=== PATIENT | female | born 1995 | race African-American/Black ===

== ENCOUNTER 2018-07-28 14:15 | Emergency (ER) | payer SELFPAY ==
--- NOTE | 2018-07-28 15:31 | ER ---
Nurse's Notes [facility] Name: Wayne Burns Age: 23 yrs Sex: Female : 1995 Arrival Date: 07/28/2018 Time: 14:19 Bed 10 Private MD: None, None Diagnosis: Gum swelling Presentation: 07/28 14:30 Presenting complaint: Patient states: Left lower tooth pain for 2 weeks. Dental carries aj noted to far left lower molar. Transition of care: patient was not received from another setting of care. Onset of symptoms was July 16, 2018. Risk Assessment: Do you want to hurt yourself or someone else? Patient reports no desire to harm self or others. Initial Sepsis Screen: Does the patient meet any 2 criteria? No. Patient's initial sepsis screen is negative. Does the patient have a suspected source of infection? No. Patient's initial sepsis screen is negative. Care prior to arrival: None. 14:30 Method Of Arrival: Ambulatory aj 14:30 Acuity: ISAIAH 5 aj Triage Assessment: 14:31 General: Appears in no apparent distress. comfortable, Behavior is calm, cooperative, aj appropriate for age. Pain: Complains of pain in lower left third molar. EENT: Reports pain in lower left third molar. Neuro: Level of Consciousness is awake, alert, obeys commands, Oriented to person, place, time, situation, Appropriate for age. Respiratory: Airway is patent Respiratory effort is even, unlabored, Respiratory pattern is regular, symmetrical. Derm: Skin is intact, is healthy with good turgor, Skin is pink, warm \\T\\ dry. normal. 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 - Social history:: Smoking status: Patient uses tobacco products, denies chronic smoking, but will smoke occasionally. - Ebola Screening: : Patient negative for fever greater than or equal to 101.5 degrees Fahrenheit, and additional compatible Ebola Virus Disease symptoms Patient denies exposure to infectious person Patient denies travel to an Ebola-affected area in the 21 days before illness onset No symptoms or risks identified at this time. Screenin:12 Abuse screen: Denies threats or abuse. Nutritional screening: No deficits noted. aa5 Tuberculosis screening: No symptoms or risk factors identified. Fall Risk None identified. Assessment: 15:09 General: Appears comfortable, Behavior is calm, cooperative. Pain: Complains of pain in aa5 lower left wisdom tooth Pain currently is 8 out of 10 on a pain scale. Neuro: Level of Consciousness is awake, alert, obeys commands, Oriented to person, place, time, situation. Cardiovascular: No deficits noted. Respiratory: Airway is patent Respiratory effort is even, unlabored, Respiratory pattern is regular, symmetrical. GI: No signs and/or symptoms were reported involving the gastrointestinal system. : No signs and/or symptoms were reported regarding the genitourinary system. EENT: Pt states "My left wisdom tooth is coming in so it's very painful, sometimes when I wake up in the mornings my left jaw is swollen". No swelling noted to jaw at this time. . Derm: Skin is pink, warm \\T\\ dry. Musculoskeletal: Range of motion: intact in all extremities. Vital Signs: 14:31 BP 112 / 91; Pulse 105; Resp 20; Temp 98.1; Pulse Ox 98% on R/A; Weight 68.04 kg; aj Height 5 ft. 6 in. (167.64 cm); 14:31 Body Mass Index 24.21 (68.04 kg, 167.64 cm) aj ED Course: 14:19 Patient arrived in ED. mr 14:20 None, None is Private Physician. mr 14:31 Triage completed. aj 14:31 Arm band placed on left wrist. Patient placed in waiting room, Patient notified of wait aj time Patient Patient asked if she could leave the hospital property and go to get food. Patient informed that she could not leave the property if she was registered. Given directions to vending machines. Suggested patient's adult visitor could go get food instead. 15:04 Jenifer Pfeiffer, NICANOR is Primary Nurse. aa5 15:05 Raisa Morales FNP-C is PHCP. kb 15:05 Gaudencio Plaza MD is Attending Physician. kb 15:09 Patient has correct armband on for positive identification. Bed in low position. Call aa5 light in reach. Side rails up X 1. 15:13 No provider procedures requiring assistance completed. aa5 15:37 Patient did not have IV access during this emergency room visit. aa5 Administered Medications: No medications were administered Outcome: 15:30 Discharge ordered by . johnnie 15:37 Discharged to home ambulatory. aa5 15:37 Condition: good 15:37 Discharge instructions given to patient, Instructed on discharge instructions, follow up and referral plans. medication usage, Demonstrated understanding of instructions, follow-up care, medications, Prescriptions given X 1. 15:38 Patient left the ED. aa5 Signatures: Raisa Morales, KNOT CUTTER-C KNOT CUTTER-Merced Bianchi, RN RN Ariela Peralta Audri, RN RN aa5 Corrections: (The following items were deleted from the chart) 15:13 15:10 Patient has correct armband on for positive identification. Bed in low position. aa5 Call light in reach. Side rails up X 1. aa5
--- NOTE | 2018-07-28 15:31 | EDPHYS ---
Physician Documentation [facility] Name: Wayne Burns Age: 23 yrs Sex: Female : 1995 Arrival Date: 07/28/2018 Time: 14:19 Bed 10 Private MD: None, None ED Physician Gaudencio Plaza HPI: 07/28 15:26 This 23 yrs old Black Female presents to ER via Ambulatory with complaints of Mouth kb Problem. 15:26 The patient presents with pain, swelling. The problem is located in the lower left kb third molar (#17). Onset: The symptoms/episode began/occurred 3 week(s) ago. Duration: The symptoms are intermittent. Modifying factors: The symptoms are alleviated by nothing, the symptoms are aggravated by nothing. Associated signs and symptoms: Pertinent positives: pain, swelling, Pertinent negatives: anorexia, chills, dysphagia, fever, inability to eat, nausea, redness in area, vomiting. Severity of symptoms: At their worst the symptoms were mild, moderate, in the emergency department the symptoms are unchanged. The patient has not experienced similar symptoms in the past. The patient has not recently seen a physician. 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 - Social history:: Smoking status: Patient uses tobacco products, denies chronic smoking, but will smoke occasionally. - Ebola Screening: : Patient negative for fever greater than or equal to 101.5 degrees Fahrenheit, and additional compatible Ebola Virus Disease symptoms Patient denies exposure to infectious person Patient denies travel to an Ebola-affected area in the 21 days before illness onset No symptoms or risks identified at this time. ROS: 15:25 Constitutional: Negative for fever, chills, and weight loss, Cardiovascular: Negative kb for chest pain, palpitations, and edema, Respiratory: Negative for shortness of breath, cough, wheezing, and pleuritic chest pain, Abdomen/GI: Negative for abdominal pain, nausea, vomiting, diarrhea, and constipation, MS/Extremity: Negative for injury and deformity, Skin: Negative for injury, rash, and discoloration, Neuro: Negative for headache, weakness, numbness, tingling, and seizure. 15:25 ENT: Positive for dental pain. Exam: 15:25 Constitutional: This is a well developed, well nourished patient who is awake, alert, kb and in no acute distress. Head/Face: Normocephalic, atraumatic. Chest/axilla: Normal chest wall appearance and motion. Nontender with no deformity. No lesions are appreciated. Cardiovascular: Regular rate and rhythm with a normal S1 and S2. No gallops, murmurs, or rubs. Normal PMI, no JVD. No pulse deficits. Respiratory: Lungs have equal breath sounds bilaterally, clear to auscultation and percussion. No rales, rhonchi or wheezes noted. No increased work of breathing, no retractions or nasal flaring. Abdomen/GI: Soft, non-tender, with normal bowel sounds. No distension or tympany. No guarding or rebound. No evidence of tenderness throughout. Skin: Warm, dry with normal turgor. Normal color with no rashes, no lesions, and no evidence of cellulitis. MS/ Extremity: Pulses equal, no cyanosis. Neurovascular intact. Full, normal range of motion. Neuro: Awake and alert, GCS 15, oriented to person, place, time, and situation. Cranial nerves II-XII grossly intact. Motor strength 5/5 in all extremities. Sensory grossly intact. Cerebellar exam normal. Normal gait. 15:25 ENT: Dental exam: gum swelling, that is mild, specifically in the lower left third molar (#17), pain, that is moderate, specifically in the lower left third molar (#17). Vital Signs: 14:31 BP 112 / 91; Pulse 105; Resp 20; Temp 98.1; Pulse Ox 98% on R/A; Weight 68.04 kg; aj Height 5 ft. 6 in. (167.64 cm); 14:31 Body Mass Index 24.21 (68.04 kg, 167.64 cm) aj MDM: 15:05 Patient medically screened. kb 15:25 Data reviewed: vital signs, nurses notes. Data interpreted: Pulse oximetry: on room air kb is 98 %. Interpretation: normal. Counseling: I had a detailed discussion with the patient and/or guardian regarding: the historical points, exam findings, and any diagnostic results supporting the discharge/admit diagnosis, the need for outpatient follow up, a dentist, to return to the emergency department if symptoms worsen or persist or if there are any questions or concerns that arise at home. Administered Medications: No medications were administered Disposition: 17:57 Co-signature as Attending Physician, Gaudencio Plaza MD. Disposition: 07/28/18 15:30 Discharged to Home. Impression: Gum swelling. - Condition is Stable. - Discharge Instructions: Dental Pain, [id number]. - Prescriptions for Amoxicillin 500 mg Oral Capsule - take 1 capsule by ORAL route every 8 hours for 7 days; 21 tablet. - Medication Reconciliation Form, Thank You Letter, Antibiotic Education, Prescription Opioid Use, Work release form form. - Follow up: Emergency Department; When: As needed; Reason: Worsening of condition. Follow up: Private Physician; When: 2 - 3 days; Reason: Recheck today's complaints, Continuance of care, Re-evaluation by your physician. Signatures: Raisa Morales, AMILCAR-C PAYROLL BENEFITS CLERK-Merced Bianchi RN RN aj Calderon, Audri, RN RN aa5 Gaudencio Plaza MD MD Corrections: (The following items were deleted from the chart) 15:38 15:30 07/28/2018 15:30 Discharged to Home. Impression: Gum swelling. Condition is aa5 Stable. Forms are Medication Reconciliation Form, Thank You Letter, Antibiotic Education, Prescription Opioid Use. Follow up: Emergency Department; When: As needed; Reason: Worsening of condition. Follow up: Private Physician; When: 2 - 3 days; Reason: Recheck today's complaints, Continuance of care, Re-evaluation by your physician. kb
== END 2018-07-28 15:38 | disposition home or self-care (01) ==
LOC: ER 14:15
DX: K06.1 Gingival enlargement (principal); Z72.0 Tobacco use
CPT/HCPCS: 99282

== ENCOUNTER 2020-12-30 06:18 | Emergency (ER) | payer SELFPAY ==
--- NOTE | 2020-12-30 07:42 | ER ---
Nurse's Notes [facility] Name: Wayne Burns Age: 25 yrs Sex: Female : 1995 Arrival Date: 12/30/2020 Time: 06:21 Bed 7 Private MD: Diagnosis: Dermatitis, unspecified;Allergic contact dermatitis Presentation: 12/30 06:35 Chief complaint: Patient states: I feel like I am having allergic reaction for about 3 rr5 weeks now. I don't know from where. I have rashes to my legs and all over my body. it is really itchy. denies SOB or . Coronavirus screen: Client denies travel out of the [place] in the last 14 days. At this time, the client does not indicate any symptoms associated with coronavirus-19. Ebola Screen: Patient negative for fever greater than or equal to 101.5 degrees Fahrenheit, and additional compatible Ebola Virus Disease symptoms Patient denies exposure to infectious person. Patient denies travel to an Ebola-affected area in the 21 days before illness onset. Initial Sepsis Screen: Does the patient meet any 2 criteria? No. Patient's initial sepsis screen is negative. Does the patient have a suspected source of infection? No. Patient's initial sepsis screen is negative. Risk Assessment: Do you want to hurt yourself or someone else? Patient reports no desire to harm self or others. Onset of symptoms was November 2020. 06:35 Method Of Arrival: Ambulatory rr5 06:35 Acuity: ISAIAH 4 rr5 Triage Assessment: 06:41 General: Appears in no apparent distress. uncomfortable, Behavior is calm, cooperative, rr5 appropriate for age. Pain: Denies pain. Neuro: Level of Consciousness is awake, alert, Oriented to person, place, time. Cardiovascular: Capillary refill < 3 seconds Patient's skin is warm and dry. Respiratory: Airway is patent Respiratory effort is even, unlabored, Respiratory pattern is regular, symmetrical. Derm: Rash noted that is red, raised, on back, right arm, left arm, right leg and left leg. 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 - Social history:: Smoking status: Patient reports the use of cigarette tobacco products, cigars, Patient uses alcohol, weekly. Patient/guardian denies using street drugs. - Family history:: not pertinent. Screenin:41 Abuse screen: Denies threats or abuse. Denies injuries from another. Nutritional rr5 screening: No deficits noted. Tuberculosis screening: No symptoms or risk factors identified. Fall Risk None identified. Total Maki Fall Scale indicates No Risk (0-24 pts). Assessment: 07:51 Reassessment: Patient appears in no apparent distress at this time. No changes from sv previously documented assessment. Patient and/or family updated on plan of care and expected duration. Pain level reassessed. Patient is alert, oriented x 3, equal unlabored respirations, skin warm/dry/pink. Vital Signs: 06:35 BP 118 / 82; Pulse 84; Resp 17; Temp 98.4; Pulse Ox 97% ; Weight 77.11 kg; Height 5 ft. rr5 6 in. (167.64 cm); Pain 0/10; 06:35 Body Mass Index 27.44 (77.11 kg, 167.64 cm) rr5 ED Course: 06:21 Patient arrived in ED. ag3 06:39 Triage completed. rr5 06:40 Arm band placed on right wrist. rr5 06:40 Patient has correct armband on for positive identification. Placed in gown. Bed in low rr5 position. Call light in reach. 07:14 Soraya Melchor RN is Primary Nurse. sv 07:23 Otilio Bueno MD is Attending Physician. rita 07:28 ED physician to see patient. sv 07:51 No provider procedures requiring assistance completed. Patient did not have IV access sv during this emergency room visit. Administered Medications: 07:50 Drug: Pepcid (famotidine) 20 mg Route: PO; sv 07:50 Follow up: Response: Medication administered at discharge. sv 07:50 Drug: predniSONE 20 mg Route: PO; sv 07:50 Follow up: Response: Medication administered at discharge. sv Outcome: 07:41 Discharge ordered by . rita 07:51 Discharged to home ambulatory. sv 07:51 Condition: stable 07:51 Discharge instructions given to patient, Instructed on discharge instructions, follow up and referral plans. medication usage, Demonstrated understanding of instructions, follow-up care, medications, Prescriptions given X 3. 07:51 Patient left the ED. sv Signatures: Soraya Melchor, RN RN Otilio Pantoja MD MD cha Gomez, Alice ag3 Angelito Becker RN RN rr5
--- NOTE | 2020-12-30 07:43 | EDPHYS ---
Physician Documentation [facility] Name: Wayne Burns Age: 25 yrs Sex: Female : 1995 Arrival Date: 12/30/2020 Time: 06:21 Bed 7 Private MD: ED Physician Otilio Bueno HPI: 12/30 07:36 This 25 yrs old Black Female presents to ER via Ambulatory with complaints of Rash. [facility] 07:36 The patient's rash thought to be caused by an unknown cause. The rash is located on the rita body diffusely. The rash can be described as erythematous. Onset: The symptoms/episode began/occurred this morning, today. Associated signs and symptoms: Pertinent positives: itching. Severity of symptoms: At their worst the symptoms were mild moderate in the emergency department the symptoms have resolved and did so just prior to arrival. Treatment given at home: Benadryl. The patient has experienced similar episodes in the past, multiple times. 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 - Social history:: Smoking status: Patient reports the use of cigarette tobacco products, cigars, Patient uses alcohol, weekly. Patient/guardian denies using street drugs. - Family history:: not pertinent. ROS: 07:36 Constitutional: Negative for fever, chills, and weight loss, Eyes: Negative for injury, rita pain, redness, and discharge, ENT: Negative for injury, pain, and discharge, Neck: Negative for injury, pain, and swelling, Cardiovascular: Negative for chest pain, palpitations, and edema, Respiratory: Negative for shortness of breath, cough, wheezing, and pleuritic chest pain, Abdomen/GI: Negative for abdominal pain, nausea, vomiting, diarrhea, and constipation, Back: Negative for injury and pain, : Negative for injury, bleeding, discharge, and swelling, MS/Extremity: Negative for injury and deformity, Skin: Negative for injury, rash, and discoloration, Neuro: Negative for headache, weakness, numbness, tingling, and seizure, Psych: Negative for depression, anxiety, suicide ideation, homicidal ideation, and hallucinations, Allergy/Immunology: Negative for hives, rash, and allergies, Endocrine: Negative for neck swelling, polydipsia, polyuria, polyphagia, and marked weight changes, Hematologic/Lymphatic: Negative for swollen nodes, abnormal bleeding, and unusual bruising. 07:36 Skin: Positive for rash, diffusely. Exam: 07:36 Constitutional: This is a well developed, well nourished patient who is awake, alert, rita and in no acute distress. Head/Face: Normocephalic, atraumatic. Eyes: Pupils equal round and reactive to light, extra-ocular motions intact. Lids and lashes normal. Conjunctiva and sclera are non-icteric and not injected. Cornea within normal limits. Periorbital areas with no swelling, redness, or edema. ENT: Nares patent. No nasal discharge, no septal abnormalities noted. Tympanic membranes are normal and external auditory canals are clear. Oropharynx with no redness, swelling, or masses, exudates, or evidence of obstruction, uvula midline. Mucous membranes moist. Neck: Trachea midline, no thyromegaly or masses palpated, and no cervical lymphadenopathy. Supple, full range of motion without nuchal rigidity, or vertebral point tenderness. No Meningismus. Chest/axilla: Normal chest wall appearance and motion. Nontender with no deformity. No lesions are appreciated. Cardiovascular: Regular rate and rhythm with a normal S1 and S2. No gallops, murmurs, or rubs. Normal PMI, no JVD. No pulse deficits. Respiratory: Lungs have equal breath sounds bilaterally, clear to auscultation and percussion. No rales, rhonchi or wheezes noted. No increased work of breathing, no retractions or nasal flaring. Abdomen/GI: Soft, non-tender, with normal bowel sounds. No distension or tympany. No guarding or rebound. No evidence of tenderness throughout. Back: No spinal tenderness. No costovertebral tenderness. Full range of motion. Skin: Warm, dry with normal turgor. Normal color with no rashes, no lesions, and no evidence of cellulitis. MS/ Extremity: Pulses equal, no cyanosis. Neurovascular intact. Full, normal range of motion. Neuro: Awake and alert, GCS 15, oriented to person, place, time, and situation. Cranial nerves II-XII grossly intact. Motor strength 5/5 in all extremities. Sensory grossly intact. Cerebellar exam normal. Normal gait. Psych: Awake, alert, with orientation to person, place and time. Behavior, mood, and affect are within normal limits. Vital Signs: 06:35 BP 118 / 82; Pulse 84; Resp 17; Temp 98.4; Pulse Ox 97% ; Weight 77.11 kg; Height 5 ft. rr5 6 in. (167.64 cm); Pain 0/10; 06:35 Body Mass Index 27.44 (77.11 kg, 167.64 cm) rr5 MDM: 07:23 Patient medically screened. rita 07:38 Differential diagnosis: allergic reaction. Data reviewed: vital signs, nurses notes. rita Data interpreted: bus driver/monitor: not applicable for this patient encounter. rate is 84 beats/min, rhythm is regular, Pulse oximetry: is not applicable for this patient encounter. Counseling: I had a detailed discussion with the patient and/or guardian regarding: the historical points, exam findings, and any diagnostic results supporting the discharge/admit diagnosis, the need for outpatient follow up, for definitive care, a java web user interface developer, a family practitioner. Administered Medications: 07:50 Drug: Pepcid (famotidine) 20 mg Route: PO; sv 07:50 Follow up: Response: Medication administered at discharge. sv 07:50 Drug: predniSONE 20 mg Route: PO; sv 07:50 Follow up: Response: Medication administered at discharge. sv Disposition: 12/30/20 07:41 Discharged to Home. Impression: Dermatitis, unspecified, Allergic contact dermatitis. - Condition is Stable. - Discharge Instructions: Contact Dermatitis, Rash, Rash, [id number], Contact Dermatitis, [id number]. - Prescriptions for Benadryl 25 mg Oral Capsule - take 1 capsule by ORAL route every 6 hours As needed; 30 tablet. Pepcid 20 mg Oral Tablet - take 1 tablet by ORAL route every 12 hours for 10 days; 20 tablet. Medrol (Luis Enrique) 4 mg Oral Tablets, Dose Pack - take 1 tablet by ORAL route as directed - follow package instructions; 1 packet. - Medication Reconciliation Form, Thank You Letter, Antibiotic Education, Prescription Opioid Use form. - Follow up: Private Physician; When: 2 - 3 days; Reason: Recheck today's complaints, Continuance of care, Re-evaluation by your physician. - Problem is new. - Symptoms have improved. Signatures: Soraya Melchor RN RN Otilio Pantoja MD MD cha Roque, Raymond RN RN rr5 Corrections: (The following items were deleted from the chart) 07:51 07:41 12/30/2020 07:41 Discharged to Home. Impression: Dermatitis, unspecified; sv Allergic contact dermatitis. Condition is Stable. Forms are Medication Reconciliation Form, Thank You Letter, Antibiotic Education, Prescription Opioid Use. Follow up: Private Physician; When: 2 - 3 days; Reason: Recheck today's complaints, Continuance of care, Re-evaluation by your physician. Problem is new. Symptoms have improved. rita
[2020-12-30] MEDS ORDERED: FAMOTIDINE 20 MG TAB ONE (08:02)
[2020-12-30] MEDS ORDERED: predniSONE 20 MG TAB ONE (08:03)
[2020-12-30 08:25] VITALS: BP 118/82; TEMP 98.4; O2SAT 97
== END 2020-12-30 07:51 | disposition home or self-care (01) ==
LOC: ER 06:18
DX: L23.9 Allergic contact dermatitis, unspecified cause (principal); F17.210 Nicotine dependence, cigarettes, uncomplicated
CPT/HCPCS: 99283; J7512

== ENCOUNTER 2021-03-04 21:25 | Emergency (ER) | payer SELFPAY ==
[2021-03-04] MEDS ORDERED: METOCLOPRAMIDE 10 MG/2mL INJ ONE (23:18)
[2021-03-04] MEDS ORDERED: DIPHENHYDRAMINE 50 MG/ML VIAL ONE (23:18)
[2021-03-04] MEDS ORDERED: KETOROLAC 30 MG/ML INJ ONE (23:18)
[2021-03-04] MEDS ORDERED: ONDANSETRON 4 MG/2 ML VIAL ONE (23:18)
[2021-03-04] MEDS ORDERED: NA CHLORIDE 0.9% 1,000 ML ONE (23:19)
[2021-03-04 23:28] LABS: Urine Blood Trace-intact (Negative); Urine Glucose Negative (Negative); Urine Protein Negative (Negative); Urine Specific Gravity 1.025 (1.005-1.030)
[2021-03-04 23:33] LABS: Urine Specific Gravity/Preg 1.025 (1.005-1.030)
--- NOTE | 2021-03-04 23:54 | ER ---
Nurse's Notes [facility] Name: Wayne Burns Age: 25 yrs Sex: Female : 1995 Arrival Date: 03/04/2021 Time: 21:31 Bed 23 Private MD: Diagnosis: Headache Presentation: 03/04 21:33 Chief complaint: Patient states: RECIO "all day today", denies hx of migraines. No relief ad5 with Tylenol at home. Reports some blurred vision earlier in the day, denies at this time. No focal deficits noted. Denies head trauma. Coronavirus screen: At this time, the client does not indicate any symptoms associated with coronavirus-19. Ebola Screen: No symptoms or risks identified at this time. Initial Sepsis Screen: Does the patient meet any 2 criteria? No. Patient's initial sepsis screen is negative. Does the patient have a suspected source of infection? No. Patient's initial sepsis screen is negative. Risk Assessment: Do you want to hurt yourself or someone else? Patient reports no desire to harm self or others. Onset of symptoms was March 04, 2021. 21:33 Method Of Arrival: Ambulatory ad5 21:33 Acuity: ISAIAH 3 ad5 Triage Assessment: 23:45 Headache History: The patient has had previous headaches and this one is similar to iw previous episodes. General: Appears in no apparent distress. Behavior is calm, cooperative. Pain: Complains of pain in top of head and forehead Pain currently is 9 out of 10 on a pain scale. Pain began 2-3 days ago. Also complains of nausea. Neuro: Level of Consciousness is awake, alert, obeys commands, Oriented to person, place, time, situation, Moves all extremities. Full function Reports headache. Cardiovascular: Patient's skin is warm and dry. Respiratory: Respiratory effort is even, unlabored, Respiratory pattern is regular, symmetrical. Derm: Skin is intact, is healthy with good turgor. Musculoskeletal: Range of motion: intact in all extremities. 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 - Social history:: Smoking status: unknown. Screenin:00 Abuse screen: Denies threats or abuse. Denies injuries from another. Nutritional iw screening: No deficits noted. Tuberculosis screening: No symptoms or risk factors identified. Fall Risk None identified. Assessment: 22:30 General: Appears in no apparent distress. Behavior is calm, cooperative. Pain: iw Complains of pain in forehead and top of head. Neuro: Level of Consciousness is awake, alert, obeys commands, Oriented to person, place, time, situation, Moves all extremities. Full function. Cardiovascular: Patient's skin is warm and dry. Respiratory: Airway is patent Respiratory effort is even, unlabored. GI: Abdomen is flat, non-distended. Derm: Skin is intact, is healthy with good turgor. Musculoskeletal: Range of motion: intact in all extremities. Vital Signs: 21:33 BP 116 / 73; Pulse 86; Resp 16 S; Temp 97.6; Pulse Ox 100% on R/A; Weight 72.57 kg; ad5 Height 5 ft. 6 in. (167.64 cm); 21:33 Body Mass Index 25.82 (72.57 kg, 167.64 cm) ad5 ED Course: 21:31 Patient arrived in ED. es 21:36 Triage completed. ad5 21:36 Arm band placed on right wrist. ad5 22:16 Ramila Sorenson, RN is Primary Nurse. iw 22:18 Otilio Salcedo PA is PHCP. cp 22:18 Hayder Davalos MD is Attending Physician. cp 22:30 Patient has correct armband on for positive identification. iw 22:45 Inserted saline lock: 22 gauge in right antecubital area, using aseptic technique. ds4 22:57 CT Head Brain wo Cont In Process Unspecified. EDMS 03/05 00:01 No provider procedures requiring assistance completed. IV discontinued, intact, iw bleeding controlled, No redness/swelling at site. Pressure dressing applied. Administered Medications: 03/04 23:18 Drug: TORadol - (ketorolac) 15 mg Route: IVP; Site: right antecubital; iw 23:18 Drug: Benadryl (diphenhydrAMINE) 25 mg Route: IVP; Site: right antecubital; iw 23:19 Drug: NS 0.9% 1000 ml Route: IV; Rate: 1 bolus; Site: right antecubital; iw 23:19 Drug: Reglan (metoCLOPramide) 10 mg Route: IVP; Site: right antecubital; iw 23:19 Drug: Zofran (Ondansetron) 4 mg Route: IVP; Site: right antecubital; iw Outcome: 23:54 Discharge ordered by MD. bradford 03/05 00:01 Discharged to home ambulatory. iw Condition: good Discharge instructions given to patient, Instructed on discharge instructions, follow up and referral plans. Demonstrated understanding of instructions, follow-up care, medications, Prescriptions given X 2. 00:02 Patient left the ED. iw Signatures: Dispatcher [employer] Veronica Chu Irene, RN RN iw Chaim Whitman ds4 Otilio Salcedo PA PA Bonifacio Thakur
--- NOTE | 2021-03-04 23:54 | EDPHYS ---
Physician Documentation [facility] Name: Wayne Burns Age: 25 yrs Sex: Female : 1995 Arrival Date: 03/04/2021 Time: 21:31 Bed 23 Private MD: ED Physician Hayder Davalos HPI: 03/04 22:34 This 25 yrs old Black Female presents to ER via Ambulatory with complaints of Headache. cp 22:34 The patient complains of pain to the top of head and forehead. cp 22:34 The patient describes the headache as constant. Onset: The symptoms/episode cp began/occurred this morning, became at its worse 4 hours later. 22:34 Patient denies headache being worst headache of life, but reports just will not go away.cp 22:35 Severity of symptoms: in the emergency department the pain a " 10" out of "10". 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 - Social history:: Smoking status: unknown. ROS: 22:40 Neuro: Positive for headache, of the forehead and top of head, Negative for altered cp mental status, dizziness. 22:40 Eyes: Negative for injury, pain, redness, and discharge. cp 22:40 Constitutional: Negative for body aches, chills, fever, poor PO intake. 22:40 ENT: Negative for drainage from ear(s), ear pain, sore throat, difficulty swallowing, difficulty handling secretions. 22:40 Neck: Negative for pain with movement, pain at rest, stiffness. 22:40 Respiratory: Negative for cough, shortness of breath, wheezing. 22:40 Abdomen/GI: Positive for nausea, Negative for abdominal pain, vomiting, diarrhea, constipation. 22:40 : Negative for urinary symptoms. 22:40 Skin: Negative for cellulitis, rash. 22:40 All other systems are negative. Exam: 22:45 Constitutional: The patient appears in no acute distress, alert, awake, non-toxic, well cp developed, well nourished. 22:45 Head/Face: Normocephalic, atraumatic. cp 22:45 Eyes: Pupils: equal, round, and reactive to light and accomodation, Extraocular movements: intact throughout. 22:45 ENT: External ear(s): are unremarkable, Ear canal(s): are normal, TM's: dullness, bilaterally, Nose: is normal, Posterior pharynx: Airway: no evidence of obstruction, patent. 22:45 Neck: ROM/movement: is normal, is supple, no meningismus, no nuchal rigidity. 22:45 Chest/axilla: Inspection: normal. 22:45 Cardiovascular: Rate: normal, Rhythm: regular. 22:45 Respiratory: the patient does not display signs of respiratory distress, Respirations: normal, no use of accessory muscles. 22:45 Abdomen/GI: Exam negative for discomfort, distension, guarding, Inspection: abdomen appears normal. 22:45 Skin: no rash present. 22:45 Neuro: Orientation: to person, place \\T\\ time. Mentation: is normal, Cerebellar function: is grossly normal, Motor: moves all fours, strength is normal, Sensation: is normal, Gait: is steady, at a normal pace, without difficulty. 22:45 Special observations: patient using phone upon entering exam room after being observed cp to walk to exam room from [facility]. Vital Signs: 21:33 BP 116 / 73; Pulse 86; Resp 16 S; Temp 97.6; Pulse Ox 100% on R/A; Weight 72.57 kg; ad5 Height 5 ft. 6 in. (167.64 cm); 21:33 Body Mass Index 25.82 (72.57 kg, 167.64 cm) ad5 MDM: 22:19 Patient medically screened. cp 23:00 Differential diagnosis: migraine, subarachnoid bleed, subdural hematoma, tension cp headache. 23:50 ED course: VSS. Patient requesting discharge to home at this time after reporting cp transportation is here to pick her up. 23:54 Data reviewed: vital signs, nurses notes, radiologic studies, CT scan. cp 23:54 Counseling: I had a detailed discussion with the patient and/or guardian regarding: the cp historical points, exam findings, and any diagnostic results supporting the discharge/admit diagnosis, radiology results, to return to the emergency department if symptoms worsen or persist or if there are any questions or concerns that arise at home. Response to treatment: the patient's symptoms have markedly improved after treatment, and as a result, I will discharge patient. 03/04 23:28 Order name: Urine Dipstick-Ancillary; Complete Time: 23:53 EDMS 03/04 23:30 Order name: Urine --Ancillary (enter results); Complete Time: 23:53 tt3 03/04 22:36 Order name: CT Head Brain wo Cont cp 03/04 22:33 Order name: IV; Complete Time: 22:47 cp 03/04 22:36 Order name: Urine Test (obtain specimen); Complete Time: 23:28 cp Administered Medications: 23:18 Drug: TORadol - (ketorolac) 15 mg Route: IVP; Site: right antecubital; iw 23:18 Drug: Benadryl (diphenhydrAMINE) 25 mg Route: IVP; Site: right antecubital; iw 23:19 Drug: NS 0.9% 1000 ml Route: IV; Rate: 1 bolus; Site: right antecubital; iw 23:19 Drug: Reglan (metoCLOPramide) 10 mg Route: IVP; Site: right antecubital; iw 23:19 Drug: Zofran (Ondansetron) 4 mg Route: IVP; Site: right antecubital; iw Disposition: 03/05 00:22 Co-signature as Attending Physician, Hayder Davalos MD. pkl Disposition: 03/04/21 23:54 Discharged to Home. Impression: Headache. - Condition is Stable. - Discharge Instructions: General Headache Without Cause. - Prescriptions for Fiorinal 50- 325-40 mg Oral Capsule - take 1 capsule by ORAL route every 4 hours As needed - not to exceed 6 capsules per day; 20 capsule. Ibuprofen 800 mg Oral Tablet - take 1 tablet by ORAL route every 8 hours As needed take with food; 30 tablet. Zofran 4 mg Oral Tablet - take 1 tablet by ORAL route every 12 hours As needed; 20 tablet. - Medication Reconciliation Form, Thank You Letter, Antibiotic Education, Prescription Opioid Use form. - Follow up: Private Physician; When: 1 - 2 days; Reason: Worsening of condition. - Problem is new. - Symptoms have improved. Signatures: Dispatcher [employer] EDHayder Cooper MD MD pkl Ramila Sorenson RN RN iw Otilio Salcedo PA PA cp Davidson, Andrea ad5 Corrections: (The following items were deleted from the chart) 00:02 03/04 23:54 03/04/2021 23:54 Discharged to Home. Impression: Headache. Condition is iw Stable. Forms are Medication Reconciliation Form, Thank You Letter, Antibiotic Education, Prescription Opioid Use. Follow up: Private Physician; When: 1 - 2 days; Reason: Worsening of condition. Problem is new. Symptoms have improved. cp
[2021-03-05 00:41] VITALS: BP 116/73; TEMP 97.6; O2SAT 100
--- NOTE | 2021-03-05 14:40 | RAD REPORT ---
EXAM DESCRIPTION: CT - Head Brain Wo Cont - 03/05/2021 6:37 am CLINICAL HISTORY: HEADACHE. TECHNIQUE: Axial, coronal, and sagittal images through the brain were performed in the absence of in travenous contrast. This exam was performed according to our departmental dose-optimization program w hich includes use of Automated Exposure Control, adjustment of the mA and/or kV according to patient size and/or use of iterative reconstruction technique. COMPARISON: None. FINDINGS: The brain parenchyma appears unremarkable. There is no intra-axial or extra-axial bleed se en. There is no mass or mass effect. The ventricles are normal in size shape and configuration. The o rbital contents appear unremarkable. The visualized paranasal sinuses and mastoid air cells are patent. No acute fracture is identified. IMPRESSION: No acute intracranial abnormality identified. Electronically signed by: Yoselyn Dominguez MD 03/04/2021 11:04 PM CDT Due to temporary technical issues with the PACS/Fluency reporting system, reports are being signed by the in house radiologists without review as a courtesy to insure prompt reporting. The interpreting radiologist is fully responsible for the content of the report.
== END 2021-03-05 00:02 | disposition home or self-care (01) ==
LOC: ER 21:25
DX: R51.9 Headache, unspecified (principal)
CPT/HCPCS: 70450; 81003; 81025; 96374; 96375; 99284; J1200; J2405; J2765; J7030

== ENCOUNTER 2021-07-18 23:25 | Emergency (ER) | payer SELFPAY ==
--- NOTE | 2021-07-18 23:48 | ER ---
Nurse's Notes [facility] Name: Wayne Burns Age: 26 yrs Sex: Female : 1995 Arrival Date: 07/18/2021 Time: 23:28 Bed Waiting Private MD: Diagnosis: Presentation: 07/18 23:46 Chief complaint: pt left before triage. bb ED Course: 23:28 Patient arrived in ED. bp1 Administered Medications: No medications were administered Outcome: 23:48 Patient left the ED. bb Signatures: Gilda Muhammad RN RN bb Jessica Carter bp1
== END 2021-07-18 23:48 | disposition left against medical advice (07) ==
LOC: ER 23:25
DX: Z53.21 Procedure and treatment not carried out due to patient leaving prior to being seen by health care provider (principal)
CPT/HCPCS: 99281

== ENCOUNTER 2021-11-02 02:11 | Emergency (ER) | payer SELFPAY ==
[2021-11-02] MEDS ORDERED: IBUPROFEN 200 MG TAB PO ONE (02:59)
[2021-11-02 03:10] LABS: Urine Blood Negative (Negative); Urine Glucose Negative (Negative); Urine Protein 1+ (Negative); Urine Specific Gravity 1.015 (1.005-1.030); Urine pH >=9.0 (5.0-7.0)
[2021-11-02 03:46] LABS: SARS-COV-2 RT PCR POSITIVE (NEGATIVE)
--- NOTE | 2021-11-02 03:47 | EDPHYS ---
Physician Documentation [facility] Name: Wayne Burns Age: 26 yrs Sex: Female : 1995 Arrival Date: 11/02/2021 Time: 02:15 Bed 6 Private MD: SARAH Physician Otilio Bueno HPI: 11/02 02:49 This 26 yrs old Black Female presents to ER via Ambulatory with complaints of Vomiting, rita CHILLS. 02:49 This 26 yrs old Black Female presents to ER via Ambulatory with complaints of Vomiting, rita CHILLS. 02:49 The patient presents to the emergency department with nausea, vomiting, that is rita continuous. Onset: The symptoms/episode began/occurred 1 day(s) ago. Possible causes: unknown. The symptoms are aggravated by nothing. The symptoms are alleviated by nothing. Associated signs and symptoms: Pertinent positives: fever. Severity of symptoms: At their worst the symptoms were mild in the emergency department the symptoms are unchanged. The patient has experienced a previous episode. 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 - Social history:: Smoking status: Patient reports the use of cigarette tobacco products, denies chronic smoking, but will smoke occasionally. ROS: 02:50 Constitutional: Negative for fever, chills, and weight loss, Eyes: Negative for injury, rita pain, redness, and discharge, ENT: Negative for injury, pain, and discharge, Neck: Negative for injury, pain, and swelling, Cardiovascular: Negative for chest pain, palpitations, and edema, Back: Negative for injury and pain, : Negative for injury, bleeding, discharge, and swelling, MS/Extremity: Negative for injury and deformity, Skin: Negative for injury, rash, and discoloration, Neuro: Negative for headache, weakness, numbness, tingling, and seizure, Psych: Negative for depression, anxiety, suicide ideation, homicidal ideation, and hallucinations, Allergy/Immunology: Negative for hives, rash, and allergies, Endocrine: Negative for neck swelling, polydipsia, polyuria, polyphagia, and marked weight changes, Hematologic/Lymphatic: Negative for swollen nodes, abnormal bleeding, and unusual bruising. 02:50 Abdomen/GI: Positive for nausea, vomiting. Exam: 02:50 Constitutional: This is a well developed, well nourished patient who is awake, alert, rita and in no acute distress. Head/Face: Normocephalic, atraumatic. Eyes: Pupils equal round and reactive to light, extra-ocular motions intact. Lids and lashes normal. Conjunctiva and sclera are non-icteric and not injected. Cornea within normal limits. Periorbital areas with no swelling, redness, or edema. ENT: Nares patent. No nasal discharge, no septal abnormalities noted. Tympanic membranes are normal and external auditory canals are clear. Oropharynx with no redness, swelling, or masses, exudates, or evidence of obstruction, uvula midline. Mucous membranes moist. Neck: Trachea midline, no thyromegaly or masses palpated, and no cervical lymphadenopathy. Supple, full range of motion without nuchal rigidity, or vertebral point tenderness. No Meningismus. Chest/axilla: Normal chest wall appearance and motion. Nontender with no deformity. No lesions are appreciated. Cardiovascular: Regular rate and rhythm with a normal S1 and S2. No gallops, murmurs, or rubs. Normal PMI, no JVD. No pulse deficits. Respiratory: Lungs have equal breath sounds bilaterally, clear to auscultation and percussion. No rales, rhonchi or wheezes noted. No increased work of breathing, no retractions or nasal flaring. Abdomen/GI: Soft, non-tender, with normal bowel sounds. No distension or tympany. No guarding or rebound. No evidence of tenderness throughout. Back: No spinal tenderness. No costovertebral tenderness. Full range of motion. Skin: Warm, dry with normal turgor. Normal color with no rashes, no lesions, and no evidence of cellulitis. MS/ Extremity: Pulses equal, no cyanosis. Neurovascular intact. Full, normal range of motion. Neuro: Awake and alert, GCS 15, oriented to person, place, time, and situation. Cranial nerves II-XII grossly intact. Motor strength 5/5 in all extremities. Sensory grossly intact. Cerebellar exam normal. Normal gait. Psych: Awake, alert, with orientation to person, place and time. Behavior, mood, and affect are within normal limits. 02:50 Musculoskeletal/extremity: ROM: no acute changes, intact in all extremities, Circulation is intact in all extremities. Sensation intact. Compartment Syndrome exam of affected extremity: is normal. Joints: All joints appear normal with full range of motion. Weight bearing: able to fully bear weight, Tendon exam: specific tendon testing normal through active and passive range of motion DVT Exam: No signs of deep vein thrombosis. no pain, no swelling, no tenderness, negative Homans' sign noted on exam, no appreciated bluish discoloration, no erythema, no increased warmth. Vital Signs: 02:26 BP 114 / 90; Pulse 97; Resp 18 S; Temp 99.0(O); Pulse Ox 100% on R/A; Weight 72.57 kg lg3 (R); Height 5 ft. 6 in. (167.64 cm) (R); Pain 10/10; 03:25 BP 105 / 90; Pulse 95; Resp 16; Pulse Ox 100% on R/A; ll3 04:16 BP 121 / 80; Pulse 89; Resp 17; Pulse Ox 100% on R/A; sm5 02:26 Body Mass Index 25.82 (72.57 kg, 167.64 cm) lg3 MDM: 02:44 Patient medically screened. [facility] 02:52 Antibiotic administration: The patient is discharged and will get outpatient [facility] antibiotics, Zithromax. Differential diagnosis: Nonspecific abd pain, viral gastroenteritis, gastroenteritis, viral Infection, bacterial infection. Data reviewed: vital signs, nurses notes, lab test result(s), Flu: negative radiologic studies. Data interpreted: campus monitor: rate is 97 beats/min, rhythm is regular. Test interpretation: by ED physician or midlevel provider:. Counseling: I had a detailed discussion with the patient and/or guardian regarding: the historical points, exam findings, and any diagnostic results supporting the discharge/admit diagnosis, lab results, the need for outpatient follow up, for definitive care, a family practitioner. 11/02 02:49 Order name: COVID-19/FLU A+B (Document "Date of Onset" if Symptomatic); Complete Time: [facility] 03:49 11/02 03:04 Order name: Urine --Ancillary (enter results) 2 11/02 03:05 Order name: Urine --Ancillary EDSD 11/02 03:10 Order name: Urine Dipstick-Ancillary; Complete Time: 03:44 EDMS 11/02 02:49 Order name: Urine Dipstick-Ancillary (obtain specimen); Complete Time: 03:03 [facility] 11/02 02:49 Order name: Urine Test (obtain specimen); Complete Time: 03:04 rita Administered Medications: 02:59 Drug: Motrin (ibuprofen) 600 mg Route: PO; ll3 03:24 Follow up: Response: No adverse reaction ll3 04:15 Drug: Pepcid (famotidine) 40 mg Route: PO; sm5 04:15 Drug: Aspirin 81 mg Route: PO; sm5 04:15 Drug: Zithromax (azithromycin) 500 mg Route: PO; sm5 04:15 Drug: Singulair 10 mg Route: PO; sm5 Disposition Summary: 11/02/21 03:46 Discharge Ordered Location: Home rita Problem: new rita Symptoms: have improved rita Condition: Stable rita Diagnosis - Acute upper respiratory infection, unspecified rita - Fever, unspecified rita - Other malaise and fatigue rita - Vomiting rita - Coronavirus infection, unspecified rita Followup: rita - With: Private Physician - When: 2 - 3 days - Reason: Recheck today's complaints, Continuance of care, Re-evaluation by your physician Followup: rita - With: - When: 2 - 3 days - Reason: Recheck today's complaints, Continuance of care, Re-evaluation by your physician Discharge Instructions: - Discharge Summary Sheet rita - Fever, Adult rita - Nausea and Vomiting, Adult rita - Upper Respiratory Infection, Adult rita - Cool Mist Vaporizer rita - Upper Respiratory Infection, Adult, [id number] rita - Cough, Adult, [id number] rita - Cough, Adult rita - Fever, Adult, [id number] rita - Vomiting, Adult rita - Aspirin and Your Heart rita - COVID-19 rita Forms: - Medication Reconciliation Form rita - Thank You Letter rita - Antibiotic Education rita - Prescription Opioid Use rita Prescriptions: - ondansetron 4 mg Oral tablet,disintegrating - take 2 tablet by ORAL route every 8 hours for 2 days; 15 tablet; Refills: 0, rita Product Selection Permitted - Pepcid 20 mg Oral Tablet - take 1 tablet by ORAL route every 12 hours for 30 days; 60 tablet; Refills: 0, rita Product Selection Permitted - Zithromax Z-Luis Enrique 250 mg Oral Tablet - take 1 tablet by ORAL route as directed for 5 days Day 1 - take two (2) tablets rita one time. Day 2, 3, 4 , 5 take one (1) tablet once daily.; 6 tablet; Refills: 0, Product Selection Permitted - Singulair 10 mg Oral Tablet - take 1 tablet by ORAL route At bedtime; 30 tablet; Refills: 0, Product rita Selection Permitted Signatures: Dispatcher [employer] EDOtilio Boyd MD MD cha Gibson, Lacie, RN RN lg3 Alex Benz RN RN ll3 Stefany Herndon RN RN sm5
--- NOTE | 2021-11-02 03:47 | ER ---
Nurse's Notes [facility] Name: Wayne Burns Age: 26 yrs Sex: Female : 1995 Arrival Date: 11/02/2021 Time: 02:15 Bed 6 Private MD: Diagnosis: Acute upper respiratory infection, unspecified;Fever, unspecified;Other malaise and fatigue;Vomiting;Coronavirus infection, unspecified Presentation: 11/02 02:26 Chief complaint: Patient states: i feel like im having a hard time breathing, the lg3 chills, sweating, vomiting and diarrhea since 1300 yesterday. Coronavirus screen: Client denies travel out of the [place] in the last 14 days. Client presents with at least one sign or symptom that may indicate coronavirus-19. Standard/surgical mask placed on the client. Ebola Screen: No symptoms or risks identified at this time. Initial Sepsis Screen: Does the patient meet any 2 criteria? No. Patient's initial sepsis screen is negative. Does the patient have a suspected source of infection? No. Patient's initial sepsis screen is negative. Risk Assessment: Do you want to hurt yourself or someone else? Patient reports no desire to harm self or others. Onset of symptoms was November 01, 2021 at 13:00. 02:26 Method Of Arrival: Ambulatory 3 02:26 Acuity: ISAIAH 3 lg3 Triage Assessment: 02:29 General: Appears in no apparent distress. uncomfortable, Behavior is calm, cooperative. lg3 Pain: Complains of pain in pt states "everywhere" Pain currently is 10 out of 10 on a pain scale. Neuro: Level of Consciousness is awake, alert, obeys commands, Oriented to person, place, time, situation. Cardiovascular: Patient's skin is warm and dry. Respiratory: Airway is patent Trachea midline Respiratory effort is even, unlabored, Respiratory pattern is regular, symmetrical. GI: Reports diarrhea, nausea, vomiting. 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 - Social history:: Smoking status: Patient reports the use of cigarette tobacco products, denies chronic smoking, but will smoke occasionally. Screenin:31 Abuse screen: Denies threats or abuse. Nutritional screening: No deficits noted. lg3 Tuberculosis screening: No symptoms or risk factors identified. Fall Risk None identified. Assessment: 02:43 General: Appears in no apparent distress. uncomfortable, Behavior is calm, cooperative, ll3 anxious, Reports chills for feeling ill for 0-12 hours. Neuro: Level of Consciousness is awake, alert, obeys commands, Oriented to person, place, time, situation, Speech is normal, Reports headache weakness. Cardiovascular: Patient's skin is warm and dry. Respiratory: Reports shortness of breath at rest cough that is productive, Respiratory effort is even, unlabored, Respiratory pattern is regular, symmetrical, Breath sounds are clear bilaterally. GI: Abdomen is round non-distended, Reports nausea, vomiting. EENT: Reports nasal discharge. Derm: Skin is pink, warm \\T\\ dry. 04:15 Reassessment: No changes from previously documented assessment. 5 Vital Signs: 02:26 BP 114 / 90; Pulse 97; Resp 18 S; Temp 99.0(O); Pulse Ox 100% on R/A; Weight 72.57 kg lg3 (R); Height 5 ft. 6 in. (167.64 cm) (R); Pain 10/10; 03:25 BP 105 / 90; Pulse 95; Resp 16; Pulse Ox 100% on R/A; ll3 04:16 BP 121 / 80; Pulse 89; Resp 17; Pulse Ox 100% on R/A; sm5 02:26 Body Mass Index 25.82 (72.57 kg, 167.64 cm) lg3 ED Course: 02:15 Patient arrived in ED. es 02:29 Triage completed. lg3 02:29 Arm band placed on right wrist. lg3 02:31 Patient has correct armband on for positive identification. lg3 02:43 Alex Benz RN is Primary Nurse. ll3 02:43 COVID swab sent to lab. ll3 02:44 Otilio Bueno MD is Attending Physician. rita 03:46 Alvarado, Akash, DO is Referral Physician. rita 03:46 Notified ED physician of a critical lab result(s). Covid +. tw5 04:16 No provider procedures requiring assistance completed. Patient did not have IV access 5 during this emergency room visit. Administered Medications: 02:59 Drug: Motrin (ibuprofen) 600 mg Route: PO; ll3 03:24 Follow up: Response: No adverse reaction ll3 04:15 Drug: Pepcid (famotidine) 40 mg Route: PO; sm5 04:15 Drug: Aspirin 81 mg Route: PO; sm5 04:15 Drug: Zithromax (azithromycin) 500 mg Route: PO; sm5 04:15 Drug: Singulair 10 mg Route: PO; sm5 Outcome: 03:46 Discharge ordered by . [facility] 04:16 Discharged to home ambulatory. 5 04:16 Condition: good 04:16 Discharge instructions given to patient, Instructed on discharge instructions, follow up and referral plans. medication usage, Demonstrated understanding of instructions, follow-up care, medications, Prescriptions given X 4. 04:16 Patient left the ED. 5 Signatures: Otilio Bueno MD MD cha Salyer, Edna es Gibson, Lacie, RN RN lg3 Claribel Mejía 5 Alex Benz RN RN ll3 Stefany Herndon RN RN sm5
[2021-11-02] MEDS ORDERED: ASPIRIN EC 81 MG TAB PO ONE (03:55)
[2021-11-02] MEDS ORDERED: FAMOTIDINE 20 MG TAB ONE (03:55)
[2021-11-02] MEDS ORDERED: AZITHROMYCIN 250 MG TAB ONE (03:55)
[2021-11-02 04:19] LABS: Urine Specific Gravity/Preg 1.015 (1.005-1.030)
[2021-11-02 04:24] VITALS: TEMP 99; O2SAT 100
[2021-11-02 04:27] VITALS: BP 121/80
== END 2021-11-02 04:16 | disposition home or self-care (01) ==
LOC: ER 02:11
DX: U07.1 COVID-19 (principal); J06.9 Acute upper respiratory infection, unspecified; R53.81 Other malaise; R53.83 Other fatigue; R50.9 Fever, unspecified; F17.210 Nicotine dependence, cigarettes, uncomplicated
CPT/HCPCS: 0240U; 81003; 81025; 99283

== ENCOUNTER 2022-08-11 10:32 | Emergency (ER) | payer SELFPAY ==
[2022-08-11] MEDS ORDERED: PROPRANOLOL HCL 10 MG TAB PO ONE (12:00)
--- NOTE | 2022-08-11 12:24 | RAD REPORT ---
EXAM DESCRIPTION: Rosy Nicolas And Jaiden (2 Views)08/11/2022 12:17 pm CLINICAL HISTORY: Chest pain COMPARISON: None FINDINGS: Right upper lobe mildly hazy Main lungs appear clear. Heart is normal size IMPRESSION: Right upper lobe is mildly hazy. This probably is secondary to overlying artifact. If th e patient has clinical symptoms to suggest a right upper lobe infiltrate then unenhanced CT chest wou ld be recommended
--- NOTE | 2022-08-11 12:31 | EDPHYS ---
Physician Documentation [facility] Name: Wayne Burns Age: 27 yrs Sex: Female : 1995 Arrival Date: 08/11/2022 Time: 10:36 Bed Treatment Private MD: ED Physician Dario Carroll HPI: 08/11 11:34 This 27 yrs old Black Female presents to ER via Ambulatory with complaints of Back snw Pain, Chest Pain, Numbness Of Hand. 11:34 The patient presents with pain pt states she has had chest pain for about a year, snw intermittent, worse with smoking. pt has been smoking quite a bit recently since her anxiety has been high of late. The symptoms are located in the chest and upper back. Onset: The symptoms/episode began/occurred 1 year(s) ago, and became worse this morning. Associated signs and symptoms: Pertinent positives: numbness. The problem was sustained increase in smoking quantity. Severity of symptoms: At their worst the symptoms were moderate. The patient has experienced similar episodes in the past, chronically. The patient has not recently seen a physician. 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 - Social history:: Smoking status: Patient reports the use of cigarette tobacco products, denies chronic smoking, but will smoke occasionally. ROS: 11:33 Constitutional: Negative for fever, chills, and weight loss, Eyes: Negative for injury, snw pain, redness, and discharge, ENT: Negative for injury, pain, and discharge, Neck: Negative for injury, pain, and swelling. 11:33 Respiratory: Negative for shortness of breath, cough, wheezing, and pleuritic chest pain, Abdomen/GI: Negative for abdominal pain, nausea, vomiting, diarrhea, and constipation, Back: Negative for injury and pain, : Negative for injury, bleeding, discharge, and swelling, MS/Extremity: Negative for injury and deformity, Skin: Negative for injury, rash, and discoloration, Neuro: Negative for headache, weakness, numbness, tingling, and seizure. 11:33 Cardiovascular: Positive for chest pain, of the chest. 11:33 Psych: Positive for anxiety. Exam: 11:37 Constitutional: This is a well developed, well nourished patient who is awake, alert, snw and in no acute distress. Head/Face: Normocephalic, atraumatic. Eyes: Pupils equal round and reactive to light, extra-ocular motions intact. Lids and lashes normal. Conjunctiva and sclera are non-icteric and not injected. Cornea within normal limits. Periorbital areas with no swelling, redness, or edema. ENT: Nares patent. No nasal discharge, no septal abnormalities noted. Tympanic membranes are normal and external auditory canals are clear. Oropharynx with no redness, swelling, or masses, exudates, or evidence of obstruction, uvula midline. Mucous membranes moist. Neck: Trachea midline, no thyromegaly or masses palpated, and no cervical lymphadenopathy. Supple, full range of motion without nuchal rigidity, or vertebral point tenderness. No Meningismus. Chest/axilla: Normal chest wall appearance and motion. Nontender with no deformity. No lesions are appreciated. 11:37 Respiratory: Lungs have equal breath sounds bilaterally, clear to auscultation and percussion. No rales, rhonchi or wheezes noted. No increased work of breathing, no retractions or nasal flaring. Abdomen/GI: Soft, non-tender, with normal bowel sounds. No distension or tympany. No guarding or rebound. No evidence of tenderness throughout. 11:37 Skin: Warm, dry with normal turgor. Normal color with no rashes, no lesions, and no evidence of cellulitis. MS/ Extremity: Pulses equal, no cyanosis. Neurovascular intact. Full, normal range of motion. Neuro: Awake and alert, GCS 15, oriented to person, place, time, and situation. Cranial nerves II-XII grossly intact. Motor strength 5/5 in all extremities. Sensory grossly intact. Cerebellar exam normal. Normal gait. 11:37 Cardiovascular: hypertensive. 11:37 Back: Exam negative for acute changes. 11:37 Neuro: Exam negative for acute changes. 11:37 Psych: Behavior/mood is aggressive, Affect is animated, Oriented to person, place, time. Vital Signs: 10:54 BP 114 / 103; Pulse 96; Resp 16; Temp 99.2; Pulse Ox 100% ; Weight 66.68 kg; Height 5 jh5 ft. 6 in. (167.64 cm); Pain 0/10; 11:23 BP 119 / 92; Pulse 88; Resp 18; Pulse Ox 100% ; jh 10:54 Body Mass Index 23.73 (66.68 kg, 167.64 cm) [facility] MDM: 11:17 Patient medically screened. snw 11:39 Data reviewed: vital signs, nurses notes. Data interpreted: Pulse oximetry: on room air snw is 100 %. Interpretation: normal. Counseling: I had a detailed discussion with the patient and/or guardian regarding: the historical points, exam findings, and any diagnostic results supporting the discharge/admit diagnosis, the presence of at least one elevated blood pressure reading (>120/80) during this emergency department visit. 08/11 11:33 Order name: Chest Pa And Lat (2 Views) XRAY; Complete Time: 12:28 snw 08/11 11:29 Order name: EKG Strip; Complete Time: 11:29 ld1 Administered Medications: 12:24 Drug: Propranolol 20 mg Route: PO; ld1 12:36 Follow up: Response: No adverse reaction ld1 12:36 Drug: Augmentin (Amoxicillin-Clavulanate) 875 mg Route: PO; ld1 12:36 Follow up: Response: No adverse reaction ld1 Disposition: 15:47 Co-signature as Attending Physician, Dario Carroll MD. rn Disposition Summary: 08/11/22 12:30 Discharge Ordered Location: Home snw Condition: Stable snw Diagnosis - Elevated blood-pressure reading, without diagnosis of hypertension snw - Chest pain, unspecified snw - Unspecified bacterial pneumonia snw - Anxiety disorder, unspecified snw Followup: snw - With: Emergency Department - When: As needed - Reason: Worsening of condition Followup: snw - With: Private Physician - When: 2 - 3 days - Reason: Recheck today's complaints, Continuance of care, Re-evaluation by your physician Discharge Instructions: - Discharge Summary Sheet snw - Nonspecific Chest Pain, Adult snw - Hypertension, Adult snw - Community-Acquired Pneumonia, Adult snw - Steps to Quit Smoking snw - Health Risks of Smoking snw - How to Take Your Blood Pressure, Liod-rf-Exqu snw - Form - Blood Pressure Record Sheet snw - Managing the Challenge of Quitting Smoking snw - Managing Anxiety, Adult snw Forms: - Work release form snw - Medication Reconciliation Form snw - Thank You Letter snw - Antibiotic Education snw - Prescription Opioid Use snw Prescriptions: - Augmentin 875-125 mg Oral Tablet - take 1 tablet by ORAL route every 12 hours for 10 days; 20 tablet; Refills: 0, snw Product Selection Permitted - Propranolol 20 mg Oral Tablet - take 1 tablet by ORAL route every 8 hours; 100 tablet; Refills: 0, Product snw Selection Permitted Signatures: Dispatcher [employer] EDCaitlyn Nath, AMILCAR-C SPINNER OPEN END-Csnw Dario Carroll MD MD rn Dibbern, Lauren RN RN ld1 Leticia Dailye RN RN jh5
--- NOTE | 2022-08-11 12:31 | ER ---
Nurse's Notes [facility] Name: Wayne Burns Age: 27 yrs Sex: Female : 1995 Arrival Date: 08/11/2022 Time: 10:36 Bed Treatment Private MD: Diagnosis: Elevated blood-pressure reading, without diagnosis of hypertension;Chest pain, unspecified;Unspecified bacterial pneumonia;Anxiety disorder, unspecified Presentation: 08/11 10:54 Chief complaint: Patient states: chest pain x1 year related to smoking cig, i have peed jh5 in the bed last night and my chest was hurting and my hands went numb last night. I have been smoking more lately cause im going through some stuff. Coronavirus screen: Vaccine status: Patient reports receiving the 2nd dose of the covid vaccine. Client denies travel out of the [place] in the last 14 days. Ebola Screen: Patient negative for fever greater than or equal to 101.5 degrees Fahrenheit, and additional compatible Ebola Virus Disease symptoms Patient denies exposure to infectious person. Patient denies travel to an Ebola-affected area in the 21 days before illness onset. Initial Sepsis Screen: Does the patient meet any 2 criteria? No. Patient's initial sepsis screen is negative. Does the patient have a suspected source of infection? No. Patient's initial sepsis screen is negative. Risk Assessment: Do you want to hurt yourself or someone else? Patient reports no desire to harm self or others. 10:54 Method Of Arrival: Ambulatory [facility] 10:54 Acuity: ISAIAH 3 jh5 Triage Assessment: 10:56 General: Appears in no apparent distress. slender, well groomed, well developed, well jh nourished, Behavior is calm, cooperative, appropriate for age, anxious. 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 - Social history:: Smoking status: Patient reports the use of cigarette tobacco products, denies chronic smoking, but will smoke occasionally. Screenin:18 Abuse screen: Denies threats or abuse. Denies injuries from another. Nutritional ld1 screening: No deficits noted. Tuberculosis screening: No symptoms or risk factors identified. Fall Risk None identified. Assessment: 12:18 General: Appears in no apparent distress. comfortable, Behavior is cooperative, ld1 anxious. Pain: Complains of pain in chest Pain does not radiate. Pain currently is 0 out of 10 on a pain scale. Quality of pain is described as throbbing, Pain began 1 year ago Is intermittent. Neuro: Level of Consciousness is awake, alert, obeys commands, Oriented to person, place, time, situation, Appropriate for age. Cardiovascular: Capillary refill < 3 seconds Patient's skin is warm and dry. Respiratory: Airway is patent Respiratory effort is even, unlabored. GI: Abdomen is round non-distended. : No signs and/or symptoms were reported regarding the genitourinary system. EENT: No signs and/or symptoms were reported regarding the EENT system. Derm: No signs and/or symptoms reported regarding the dermatologic system. Vital Signs: 10:54 BP 114 / 103; Pulse 96; Resp 16; Temp 99.2; Pulse Ox 100% ; Weight 66.68 kg; Height 5 jh5 ft. 6 in. (167.64 cm); Pain 0/10; 11:23 BP 119 / 92; Pulse 88; Resp 18; Pulse Ox 100% ; jh5 10:54 Body Mass Index 23.73 (66.68 kg, 167.64 cm) jh5 ED Course: 10:36 Patient arrived in ED. rg4 10:56 Triage completed. jh5 10:56 Arm band placed on right wrist. jh5 11:16 Caitlyn Wheeler FNP-C is [facility]. snw 11:16 Dario Carroll MD is Attending Physician. snw 11:29 Amisha Butler RN is Primary Nurse. ld1 12:18 Chest Pa And Lat (2 Views) XRAY In Process Unspecified. EDMS 12:18 Patient has correct armband on for positive identification. Bed in low position. Call ld1 light in reach. Side rails up X2. phototypesetting equipment monitor on. Pulse ox on. NIBP on. Door closed. Noise minimized. 12:18 No provider procedures requiring assistance completed. Patient did not have IV access ld1 during this emergency room visit. Administered Medications: 12:24 Drug: Propranolol 20 mg Route: PO; ld1 12:36 Follow up: Response: No adverse reaction ld1 12:36 Drug: Augmentin (Amoxicillin-Clavulanate) 875 mg Route: PO; ld1 12:36 Follow up: Response: No adverse reaction ld1 Medication: 12:18 VIS not applicable for this client. ld1 Outcome: 12:30 Discharge ordered by . prema 12:36 Discharged to home ambulatory. ld1 12:36 Condition: stable 12:36 Discharge instructions given to patient, Instructed on discharge instructions, follow up and referral plans. medication usage, Demonstrated understanding of instructions, follow-up care, medications, Prescriptions given X 2. 12:37 Patient left the ED. ld1 Signatures: Dispatcher [employer] EDMS Caitlyn Wheeler, FLOOR FRAMER-C FLOOR FRAMER-Csnw Gissell Huston rg4 Amisha Butler, RN RN ld1 Leticia Dailey RN RN jh5
[2022-08-11] MEDS ORDERED: AMOX/K CLAV 875 MG TAB ONE (12:34)
[2022-08-11 12:46] VITALS: BP 119/92; O2SAT 100
[2022-08-11 12:47] VITALS: TEMP 99.2
--- NOTE | 2022-08-12 15:59 | EKG ---
Test Date: 2022-08-11 Test Time: 10:56:30 Cement Finisher Helper: ALEXIA MEASUREMENT RESULTS: Intervals: Rate: 89 MI: 174 QRSD: 90 QT: 348 QTc: 423 [place]: P: 79 MI: 174 QRS: 47 T: 53 INTERPRETIVE STATEMENTS: Normal sinus rhythm Nonspecific ST and T wave abnormality Abnormal ECG No previous ECG available for comparison Electronically Signed On 08-12-22 15:58:04 PAYROLL BOOKKEEPER by Clyde Howell
== END 2022-08-11 12:37 | disposition home or self-care (01) ==
LOC: ER 10:32
DX: R07.9 Chest pain, unspecified (principal); R03.0 Elevated blood-pressure reading, without diagnosis of hypertension; J15.9 Unspecified bacterial pneumonia; F41.9 Anxiety disorder, unspecified
CPT/HCPCS: 71046; 93005; 99284